=== PATIENT | female | born 1980 | race Caucasian/White ===

== ENCOUNTER 2019-11-18 12:17 | Emergency (ER) | payer MEDICARE, OTHER ==
[~2019-11-18] VITALS: Ht 177.8 cm; Wt 69.4 kg
[2019-11-18] MEDS ORDERED: HYDROcodone-ACET 10/325MG TAB PO ONE (12:45)
[2019-11-18 13:52] LABS: Hematocrit 31.6 % (36.0-46.0); Hemoglobin 10.8 g/dL (12.2-16.2); Mean Corpuscular Hgb Conc. 34.2 g/dL (32.0-36.0)
[2019-11-18 13:55] LABS: Mean Corpuscular Hemoglobin 32.9 pg (28.0-32.0); Mean Corpuscular Volume 96.3 fL (80.0-100.0); Platelet Count (auto) 67 10^3/uL (140-450); Red Blood Cells 3.28 10^6/uL (4.0-5.20); Red Cell Distribution Width 14.3 % (11.8-14.3); White Blood Cell 1.9 10^3/uL (4.4-10.8)
[2019-11-18 13:56] LABS: Basophils % (manual) 0 (0.0-2.0); Blast Cells 0; Metamyelocytes % 0; Myelocytes % 0; Promyelocytes % 0; Reactive Lymphocytes 0
[2019-11-18 14:07] LABS: INR 0.95 (0.9-1.15); Partial Thromboplastin Time 26.5 sec (23.0-31.2)
[2019-11-18 14:36] LABS: Band Neutrophils % (manual) 1; Eosinophils % (manual) 2 (0-7); Lymphocytes % (manual) 21 (10.0-50.0); Monocytes % (manual) 3 (0-12)
[2019-11-18] MEDS ORDERED: ONDANSETRON HCL 4 MG/2 ML VIAL IV ONE (15:30)
[2019-11-18] MEDS ORDERED: MORPHINE SULFATE 4 MG/ML SYR/VIAL IV ONE (15:30)
[2019-11-18 17:37] VITALS: BP 121/77
[2019-11-18] MEDS ORDERED: HYDROmorphone HCL 2 MG TAB PO ONE (17:45)
== END 2019-11-18 19:14 | disposition home or self-care (01) ==
LOC: ER 12:17
DX: L60.8 Other nail disorders (principal); M79.662 Pain in left lower leg; M79.661 Pain in right lower leg; Z94.4 Liver transplant status; Z88.2 Allergy status to sulfonamides; Z90.49 Acquired absence of other specified parts of digestive tract; Z86.718 Personal history of other venous thrombosis and embolism
CPT/HCPCS: 36415; 72131; 72192; 73060; 73630; 85007; 85027; 85610; 85730; 93971; 96374; 96375; 99285; J2270; J2405

== ENCOUNTER 2019-11-22 13:51 | Emergency (ER) | payer MEDICARE, OTHER ==
[~2019-11-22] VITALS: Ht 177.8 cm; Wt 69.4 kg
[2019-11-22 14:36] LABS: Salicylate < 1.7 mg/dL (2.8-20.0)
[2019-11-22 14:39] LABS: Acetaminophen < 2.0 ug/mL (10-30)
[2019-11-22] MEDS ORDERED: SODIUM CHLORIDE 0.9% 1,000 ML IV ONE (15:15)
[2019-11-22] MEDS ORDERED: MORPHINE SULFATE 4 MG/ML SYR/VIAL IV ONE ×2 (16:00→20:00)
[2019-11-22] MEDS ORDERED: ONDANSETRON HCL 4 MG/2 ML VIAL IV ONE ×2 (16:00→20:00)
[2019-11-22 16:37] LABS: Amphetamine Screen, Urine NEGATIVE (NEGATIVE); Barbiturate Scree,Urine NEGATIVE (NEGATIVE); Benzodiazephine Screen, Urine NEGATIVE (NEGATIVE); Cannabinoid Screen, Urine NEGATIVE (NEGATIVE); Cocaine Screen, Urine NEGATIVE (NEGATIVE); Opiate Scree,Urine NEGATIVE (NEGATIVE); Phencyclidine Screen, Urine NEGATIVE (NEGATIVE)
[2019-11-22 21:00] VITALS: BP 163/96
== END 2019-11-22 21:39 | disposition home or self-care (01) ==
LOC: EDBD 13:51 → ER 13:51
DX: F10.920 Alcohol use, unspecified with intoxication, uncomplicated (principal); F32.9 Major depressive disorder, single episode, unspecified; M79.601 Pain in right arm; N18.9 Chronic kidney disease, unspecified; Z90.49 Acquired absence of other specified parts of digestive tract
CPT/HCPCS: 36415; 73218; 80307; 80320; 80329; 93971; 96361; 96374; 96375; 96376; 99284; J2270; J2405; J7030